=== PATIENT | male | born 1935 | race Caucasian/White ===

== ENCOUNTER 2020-07-15 11:05 | Inpatient (IN) | payer MEDICARE, OTHER ==
[~2020-07-15] VITALS: Ht 177.8 cm; Wt 73.5 kg
[2020-07-15 12:27] LABS: BASOPHIL 0.2 % (0-2); EOSINOPHIL 0 % (0-7); HCT 27.9 % (42.0-52.0); HGB 8.1 g/dl (13.2-18.0); LYMPHOCYTE 7.2 % (15-48); MCH 34.2 pg (25.0-31.0); MCV 117.7 fL (78.0-100.0); MONOCYTE 2.2 % (0-12); MPV 10.9 fL (6.0-9.5); NEUTROPHIL 89.9 % (41-80); NRBC 0; PLT 107 K/uL (150-400); RBC 2.37 M/uL (4.70-6.00); RDW 18.6 % (11.5-14.0)
[2020-07-15 12:52] LABS: ALBUMIN 3.4 g/dL (3.4-5.0); BILIRUBIN - TOTAL 0.4 mg/dL (0.2-1.0); CREATININE 2.37 mg/dL (0.67-1.17); GLOBULIN (CALCULATION) 3.1 g/dL; POTASSIUM 4.6 mmol/L (3.5-5.1); TOTAL PROTEIN 6.5 g/dL (6.4-8.2)
[2020-07-15 13:33] LABS: INR 1.51 (0.9-1.2); PROTHROMBIN TIME 17.3 SECONDS (11.4-13.6)
[2020-07-15] MEDS ORDERED: LOPRESSOR50 MG PO (14:17)
[2020-07-15] MEDS ORDERED: NORVASC2.5 MG PO (14:17)
[2020-07-15] MEDS ORDERED: BENAZEPRIL HCL20 MG PO (14:18)
[2020-07-15] MEDS ORDERED: ALLOPURINOL300 MG PO (14:19)
[2020-07-15] MEDS ORDERED: CARDURA2 MG PO (14:19)
[2020-07-15] MEDS ORDERED: ACETAZOLAMIDE500 MG PO (14:22)
--- NOTE | 2020-07-15 15:13 | NUR ---
This nurse is unable to obtain general information or medical history due to the patient's condidtion at admission and/or not accompanied by someone capable of answering questions. Information obtained was from direct observation of the patient, old medical records and/or records that came with the patient from another facility. SOME OF THE ASSESSMENT QUESTION WHERE ANSWERED BY THE FAMILY OVER THE PHONE. THE PATIENT WOULD ONLY ANSWER WHEN HE WANTED TO.
[2020-07-15 17:37] LABS: IRON % SATURATION 15.8 %SAT (20-50)
[2020-07-15 18:01] LABS: HGB 7.1 g/dL (13.2-18.0)
[2020-07-15 18:27] LABS: FOLIC ACID (SERUM) 42.9 ng/mL (8.6-58.9)
[2020-07-15 21:52] LABS: CREATININE 2.56 mg/dL (0.67-1.17); POTASSIUM 4.3 mmol/L (3.5-5.1)
[2020-07-15 22:50] LABS: BILIRUBIN NEGATIVE (NEGATIVE); BLOOD 3+ Ery/uL (NEGATIVE); COLOR YELLOW (YELLOW); GLUCOSE (U) NORMAL (NORMAL); LEUKOCYTES 2+ Leu/uL (NEGATIVE); NITRITE NEGATIVE (NEGATIVE); PROTEIN 1+ mg/dL (NEGATIVE); SPECIFIC GRAVITY 1.015 (1.001-1.030); UROBILINOGEN 0.2 mg/dL (0.2-1.0)
[2020-07-15 23:03] LABS: CLARITY CLOUDY (CLEAR); URINARY RBC 20-50; URINARY WBC TNTC
[2020-07-15 23:04] LABS: BACTERIA 4+; SQUAMOUS EPITHELIAL CELLS RARE
[2020-07-15 23:35] LABS: HCT 25.3 % (42.0-52.0)
--- NOTE | 2020-07-15 23:37 | NUR ---
2149 PT TRANSFERRED TO ICU-2 FROM TCU. PT OBTUNDED, GRIMACES/MOANS TO PAINFULS STIMULI, OPENS EYES TO NOXIOUS STIMULI, 1 UNIT OF PRBC INFUSING ON TRANSFER. PT TOLERATED TRANSFER TO BED. VITALS- 128/40 HR-85, RESP-21, O2-100% RA TEMP- 5.0 RECTAL.
[2020-07-16 04:47] LABS: BASOPHIL 0 % (0-2); EOSINOPHIL 0 % (0-7); HCT 24.1 % (42.0-52.0); HGB 7.8 g/dl (13.2-18.0); MCH 32.6 pg (25.0-31.0); MCHC 32.4 g/dL (32.0-36.0); MCV 100.8 fL (78.0-100.0); MONOCYTE 4.6 % (0-12); MPV 10.8 fL (6.0-9.5); NEUTROPHIL 92.1 % (41-80); NRBC 0; PLT 114 K/uL (150-400); RBC 2.39 M/uL (4.70-6.00); RDW 18.5 % (11.5-14.0)
[2020-07-16 04:48] LABS: WBC 12.9 K/uL (4.0-10.5)
[2020-07-16 04:57] LABS: CREATININE 2.6 mg/dL (0.67-1.17); MAGNESIUM 2.4 mg/dL (1.8-2.4); POTASSIUM 3.1 mmol/L (3.5-5.1)
--- NOTE | 2020-07-16 11:38 | NUR ---
0805 PT CHANGED TO COMFORT CARE ONLY AFTER IN-PERSON DISCUSSION W/ 6059 W/ FAMILY @ BEDSIDE. PT PRONOUNCED . CONFIRMED VIA ELINA CONDE 0815 @ BEDSIDE 1026 [facility] CONTACTED - PT RULED OUT 1120 [facility] REP PICKED UP PT FROM ICU-02
--- NOTE | 2020-07-16 12:12 | NUR ---
07/16/20 Mr. Rizzo was living alone. He did not use any DME nor was he followed by . His daughter, Judith Ferguson had been staying in the home for the last week. - Mr. Rizzo has pasted away. Emotional support was provided with the family.
== END 2020-07-16 11:30 | disposition expired | DRG 377 ==
LOC: FER 11:05 → FICU 13:20 → FMS 13:20 → FTCU 18:47 → FICU 21:40
PROVIDERS: Emergency Medicine; Nurse Practitioner; ADMIT Internal Medicine
DX: K92.2 Gastrointestinal hemorrhage, unspecified (principal); A41.9 Sepsis, unspecified organism; G93.41 Metabolic encephalopathy; N17.0 Acute kidney failure with tubular necrosis; D62 Acute posthemorrhagic anemia; E87.2 Acidosis; Z51.5 Encounter for palliative care; Z66 Do not resuscitate; K52.9 Noninfective gastroenteritis and colitis, unspecified; I10 Essential (primary) hypertension; M19.90 Unspecified osteoarthritis, unspecified site; H35.30 Unspecified macular degeneration; F41.9 Anxiety disorder, unspecified; Z20.822 Contact with and (suspected) exposure to COVID-19; I48.91 Unspecified atrial fibrillation; F32.9 Major depressive disorder, single episode, unspecified; M10.9 Gout, unspecified; N40.0 Benign prostatic hyperplasia without lower urinary tract symptoms; Z87.891 Personal history of nicotine dependence; Z79.899 Other long term (current) drug therapy
CPT/HCPCS: 36415; 36430; 36600; 80048; 80053; 81001; 82009; 82270; 82607; 82728; 82746; 82803; 83540; 83550; 83605; 83735; 84484; 85014; 85018; 85025; 85610; 85730; 86850; 86900; 86901; 86922; 87076; 87088; 87186; 93005; 99285; C9113; J2543; J3480; J7030; J7040; J7070; P9016; U0002